=== PATIENT | male | born 1945 | race Two or more races ===

== ENCOUNTER 2018-03-23 15:27 | Outpatient (CLI) | payer OTHER | END 2018-03-23 15:32 | disposition home or self-care (01) | LOC: LAB 15:27 | DX: Z51.81 Encounter for therapeutic drug level monitoring (principal); B18.1 Chronic viral hepatitis B without delta-agent ==

== ENCOUNTER 2018-03-25 09:46 | Outpatient (CLI) | payer OTHER | END 2018-03-25 09:58 | disposition home or self-care (01) | LOC: TOM 09:46 | DX: D18.09 Hemangioma of other sites (principal); K80.80 Other cholelithiasis without obstruction; B20 Human immunodeficiency virus [HIV] disease; B19.10 Unspecified viral hepatitis B without hepatic coma | CPT/HCPCS: 74170; Q9965 ==